=== PATIENT | male | born 1955 | race Caucasian/White ===

== ENCOUNTER → 2017-04-24 | Outpatient (CLI) | payer OTHER ==
--- NOTE | 2017-04-24 16:45 | RAD ---
APPROVED REPORT Patient Location: OUT-PATIENT Indications Claudication:Bilaterally Bilateral lower extremity arterial duplex was performed to evaluate for claudication. On the right from the common femoral artery to the popliteal segments there is triphasic waveforms wi th normal velocities. There is good three-vessel runoff below the leg. On the left again note is made of excellent spectral waveforms with biphasic and triphasic waveforms throughout the common femoral artery to the popliteal segments. The below-knee vessels are also well-perfused with triphasic and bi phasic waveforms and no evidence of high-grade stenosis. Solano scale images of the bilateral arterial vessels reveals mild calcified plaque but otherwise no hi gh-grade stenosis. Velocities in the common femoral artery, superficial femoral artery, popliteal artery are as follows on the right side 120, 134, 99 cm/s respectively. Velocities in the common femoral artery, superficial femoral artery, popliteal artery are as follows on the left side 121, 128, 1 22 cm/s respectively. Risk Factors Hypertension Diabetes Critical Notification Critical Value: No <Conclusion> 1. No evidence of high-grade flow limiting stenosis in the bilateral lower extremity arterial vessels .
--- NOTE | 2017-04-24 16:52 | RAD ---
APPROVED REPORT Bilateral Lower Extremity Venous Study for DVT Patient Location: OUT-PATIENT Indications Lower Extremity Edema: Solano scale images of the bilateral lower extremity deep venous vessels were evaluated for thrombus. On the right the common femoral, superficial femoral, popliteal and below-knee vessels demonstrate sp ontaneous flow. All vessels appear to be compressible. No evidence of obstruction of flow is noted on spectral imaging. No evidence of reflux. On the left similarly the common femoral, superficial femoral, popliteal vessels appear to be marion sible with spontaneous flow and no evidence of obstruction by spectral imaging. The below-knee vessel s, straight spontaneous flow and did not have any evidence of thrombus on limited imaging. Critical Notification Critical Value: No <Conclusion> Negative for DVT in the bilateral lower extremity venous vessels.
--- NOTE | 2017-04-24 17:03 | RAD ---
APPROVED REPORT Patient Location : OUT-PATIENT Indications Lower Extremity Pain : Lower Extremity Edema : The right great saphenous vein measures 5.1 mm and there is no evidence of reflux. The right lesser s aphenous vein measures approximately 3 mm and there is no evidence of reflux. The left great saphenous vein measures approximately 4.3 mm and has no evidence of reflux. The left l todd saphenous vein measures 3.8 mm and does not reflux. Critical Notification Critical Value: No <Conclusion> Negative for reflux in the bilateral greater and lesser saphenous veins.
== END | disposition home or self-care (01) ==
LOC: US 08:37
PROVIDERS: ATTEND Internal Medicine Cardiovascular Disease
DX: I73.9 Peripheral vascular disease, unspecified (principal); M79.605 Pain in left leg; M79.604 Pain in right leg; M79.89 Other specified soft tissue disorders
CPT/HCPCS: 93923; 93970